=== PATIENT | female | born 1990 | race Two or more races ===

== ENCOUNTER 2018-05-22 20:57 | Inpatient (IN) | payer OTHER ==
[2018-05-22 22:21] LABS: ADD UMIC YES; UR ASCORBIC ACID NEGATIVE (NEGATIVE); UR BACTERIA FEW /HPF (NONE SEEN); UR BILIRUBIN (Dip) NEGATIVE (NEGATIVE); UR BLOOD (Dip) NEGATIVE (NEGATIVE); UR CLARITY SLIGHTLY CLOUDY (CLEAR); UR COLOR YELLOW (YELLOW); UR GLUCOSE (Dip) NEGATIVE (NEGATIVE); UR KETONES (Dip) NEGATIVE (NEGATIVE); UR LEUKOCYTE ESTERASE (Dip) TRACE Leu/ul (NEGATIVE); UR MUCUS MANY /HPF (NONE SEEN); UR NITRITE (Dip) NEGATIVE (NEGATIVE); UR RBC 2 /HPF (0-5); UR SPECIFIC GRAVITY (Dip) 1.035 (1.003-1.030); UR SQUAMOUS EPITHELIAL CELL FEW /HPF (FEW); UR TOTAL PROTEIN (Dip) 2+ mg/dl (NEGATIVE); UR UROBILINOGEN (Dip) 1+ mg/dL (NEGATIVE); UR WBC 5 /HPF (0-5)
[2018-05-22 22:30] LABS: ABNORMAL IP MESSAGE 1; HEMATOCRIT 34.4 % (37.0-47.0); HEMOGLOBIN 12.2 g/dl (12.0-16.0); MEAN CORPUSCULAR HEMOGLOBIN 32.5 pg (29.0-33.0); MEAN CORPUSCULAR HGB CONC 35.5 g/dl (32.0-37.0); MEAN CORPUSCULAR VOLUME 91.7 fl (82.0-101.0); MEAN PLATELET VOLUME 14.2 fl (7.4-10.4); NUCLEATED RED BLOOD CELLS% 0.3 /100WBC (0.0-0.0); PLATELET COUNT 97 10^3/UL (140-415); RED BLOOD COUNT 3.75 10^6/ul (4.20-5.40); RED CELL DISTRIBUTION WIDTH 12.5 % (11.5-14.5)
[2018-05-22 22:30] LABS: WHITE BLOOD COUNT 7.8 10^3/ul (4.8-10.8)
[2018-05-22 22:40] LABS: POSITIVE DIFF @See below
[2018-05-22 22:41] LABS: ADD MAN DIFF? YES
[2018-05-22 22:49] LABS: ALANINE AMINOTRANSFERASE 18 IU/L (13-69); ALBUMIN 2.7 g/dl (3.3-4.9); ALBUMIN/GLOBULIN RATIO 0.96; ALKALINE PHOSPHATASE 127 IU/L (42-121); ANION GAP 9 (5-13); ASPARTATE AMINO TRANSFERASE 19 IU/L (15-46); BILIRUBIN,INDIRECT 0.1 mg/dl (0-1.1); BILIRUBIN,TOTAL 0.1 mg/dl (0.2-1.3); BLOOD UREA NITROGEN 14 mg/dl (7-20); CALCIUM 8.8 mg/dl (8.4-10.2); CARBON DIOXIDE 21 mmol/L (21-31); CHLORIDE 107 mmol/L (97-110); CREATININE 0.73 mg/dl (0.44-1.00); Estimated GFR > 60 mL/min (>60); GLUCOSE 84 mg/dl (70-220); SODIUM 137 mmol/L (135-144); TOTAL PROTEIN 5.5 g/dl (6.1-8.1); URIC ACID 7.5 mg/dl (3.1-7.9)
[2018-05-22 22:50] LABS: INR 0.87; PARTIAL THROMBOPLASTIN TIME 25.8 Sec (23.0-35.0); PROTIME 11.9 Sec (11.9-14.9); PT RATIO 0.9
[2018-05-22 23:13] LABS: BAND NEUTROPHILS #M 0.1 10^3/ul (0.0-0.6); BAND NEUTROPHILS % (M) 2 % (0-4); ERYTHROBLAST% (NRBC) (M) 1 % (0-0); LYMPHOCYTES % (M) 13 % (15-51); MONOCYTE #M 0.1 10^3/ul (0.3-0.9); MONOCYTES % (M) 2 % (0-11); PLATELET ESTIMATE DECREASED; POLYCHROMASIA 2+ (0-0); SEG NEUT #M 6.5 10^3/ul (1.6-7.5); SEGMENTED NEUTROPHILS (M) % 83 % (39-77); SMUDGE%M 7 % (0-0)
[2018-05-23] MEDS ORDERED: ACETAMINOPHEN 325 MG TAB PO (00:30)
[2018-05-23] MEDS: AL HYDROX/MG HYDROX/SIMETH 30 ML CUP PO (00:59)
[2018-05-23] MEDS: NACL 0.9% 3 ML SYG IV (01:15)
[2018-05-23] MEDS: BETAMET NA PHOS/AC(6 MG/ML) 5ML INJ IM (01:47)
[2018-05-23] MEDS: FERROUS SULFATE (EC) 325 MG TAB PO (09:16)
[2018-05-23] MEDS: PRENATAL VITAMIN PO (09:16)
[2018-05-23] MEDS: ASPIRIN 81 MG TAB PO (09:37)
[2018-05-23 16:15] LABS: RAPID PLASMA REAGIN NONREACTIVE (NR)
[2018-05-23 22:17] LABS: COLLECTION PERIOD 24 hrs
[2018-05-23 22:18] LABS: COLLECTION PERIOD 24 hrs; SCRET 0.73 mg/dl (0.44-1.00); VOLUME 1000 ml/24hrs
[2018-05-23 22:19] LABS: CREATININE CLEARANCE 141.3 mls/min (84.0-162.0); CREATININE,URINE RANDOM 148.55 mg/dl (20-320); VOLUME 1000 mls
[2018-05-24] MEDS: BETAMET NA PHOS/AC(6 MG/ML) 5ML INJ IM (02:35)
[2018-05-24] MEDS ORDERED: PROPOFOL 200 MG INJ (07:00)
[2018-05-24] MEDS: ASPIRIN 81 MG TAB PO (08:57)
[2018-05-24] MEDS: FERROUS SULFATE (EC) 325 MG TAB PO (08:57)
[2018-05-24] MEDS: PRENATAL VITAMIN PO (08:57)
[2018-05-24 10:36] LABS: ADD MAN DIFF? NO
[2018-05-24 10:41] LABS: ABNORMAL IP MESSAGE 1; HEMATOCRIT 36.1 % (37.0-47.0); HEMOGLOBIN 12.6 g/dl (12.0-16.0); LYMPHOCYTES # 0.3 10^3/ul (0.8-2.9); LYMPHOCYTES % 4.5 % (15.0-51.0); MEAN CORPUSCULAR HEMOGLOBIN 32.3 pg (29.0-33.0); MEAN CORPUSCULAR HGB CONC 34.9 g/dl (32.0-37.0); MEAN CORPUSCULAR VOLUME 92.6 fl (82.0-101.0); MEAN PLATELET VOLUME 14.4 fl (7.4-10.4); MONOCYTE # 0.1 10^3/ul (0.3-0.9); MONOCYTES % 1.6 % (0.0-11.0); NEUTROPHIL # 6.9 10^3/ul (1.6-7.5); NEUTROPHILS % 93.1 % (39.0-77.0); NUCLEATED RED BLOOD CELLS% 0.4 /100WBC (0.0-0.0); PLATELET COUNT 100 10^3/UL (140-415); RED CELL DISTRIBUTION WIDTH 12.6 % (11.5-14.5)
[2018-05-24 10:41] LABS: WHITE BLOOD COUNT 7.4 10^3/ul (4.8-10.8)
[2018-05-24 10:51] LABS: POSITIVE DIFF @See below
[2018-05-24 11:02] LABS: ALANINE AMINOTRANSFERASE 15 IU/L (13-69); ALBUMIN 3.3 g/dl (3.3-4.9); ALBUMIN/GLOBULIN RATIO 1.13; ALKALINE PHOSPHATASE 127 IU/L (42-121); ANION GAP 9 (5-13); ASPARTATE AMINO TRANSFERASE 22 IU/L (15-46); BILIRUBIN,INDIRECT 0.2 mg/dl (0-1.1); BILIRUBIN,TOTAL 0.2 mg/dl (0.2-1.3); BLOOD UREA NITROGEN 9 mg/dl (7-20); CARBON DIOXIDE 20 mmol/L (21-31); CHLORIDE 107 mmol/L (97-110); CREATININE 0.54 mg/dl (0.44-1.00); Estimated GFR > 60 mL/min (>60); GLUCOSE 151 mg/dl (70-220); POTASSIUM 4.6 mmol/L (3.5-5.1); SODIUM 136 mmol/L (135-144); TOTAL PROTEIN 6.2 g/dl (6.1-8.1)
[2018-05-24] MEDS ORDERED: METHYLERGONOVINE 0.2 MG INJ IM ×2 (11:30→20:00)
[2018-05-24] MEDS ORDERED: MISOPROSTOL 200 MCG TAB PR ×2 (11:30→20:00)
[2018-05-24] MEDS ORDERED: CARBOPROST 250 MCG INJ IM ×2 (11:30→20:00)
[2018-05-24] MEDS ORDERED: OXYTOCIN 30 UNITS/LR 500 ML IV ×3 (11:30→20:00)
[2018-05-24] MEDS: FAMOTIDINE 20 MG INJ IV ×2 (11:54→16:03)
[2018-05-24] MEDS: LACTATED RINGER'S 1,000 ML IV ×2 (11:55→14:57)
[2018-05-24] MEDS: MAGNESIUM SULFATE 4 GM/100 ML 100 ML IVPB (11:59)
[2018-05-24] MEDS: MAGNESIUM SULFATE 20 GM/500 ML 500 ML IV (12:01)
[2018-05-24 12:33] LABS: HEPATITIS B SURFACE ANTIGEN NEGATIVE (NEGATIVE)
[2018-05-24 14:29] LABS: INR 0.87; PROTIME 11.9 Sec (11.9-14.9); PT RATIO 0.9
[2018-05-24 14:30] LABS: PARTIAL THROMBOPLASTIN TIME 25.6 Sec (23.0-35.0)
[2018-05-24 15:25] LABS: RAPID PLASMA REAGIN NONREACTIVE (NR)
[2018-05-24 15:40] LABS: WHITE BLOOD COUNT 8.5 10^3/ul (4.8-10.8)
[2018-05-24 15:40] LABS: ABNORMAL IP MESSAGE 1; HEMATOCRIT 37.1 % (37.0-47.0); HEMOGLOBIN 12.9 g/dl (12.0-16.0); MEAN CORPUSCULAR HEMOGLOBIN 32.4 pg (29.0-33.0); MEAN CORPUSCULAR HGB CONC 34.8 g/dl (32.0-37.0); MEAN CORPUSCULAR VOLUME 93.2 fl (82.0-101.0); MEAN PLATELET VOLUME 14.3 fl (7.4-10.4); NUCLEATED RED BLOOD CELLS% 0.4 /100WBC (0.0-0.0); PLATELET COUNT 114 10^3/UL (140-415); RED BLOOD COUNT 3.98 10^6/ul (4.20-5.40); RED CELL DISTRIBUTION WIDTH 12.7 % (11.5-14.5)
[2018-05-24 15:53] LABS: ADD MAN DIFF? YES; POSITIVE DIFF @See below
[2018-05-24] MEDS ORDERED: DIPHENHYDRAMINE 50 MG INJ IV (16:00)
[2018-05-24] MEDS: ONDANSETRON 4 MG INJ IV (16:00)
[2018-05-24] MEDS ORDERED: NALOXONE (0.4 MG/ML) INJ IV (16:00)
[2018-05-24] MEDS ORDERED: KETOROLAC 30 MG INJ IV (16:00)
[2018-05-24] MEDS ORDERED: hydrALAzine 20 MG INJ IV (16:00)
[2018-05-24] MEDS ORDERED: LABETALOL HCL 20MG INJ IV (16:00)
[2018-05-24] MEDS ORDERED: ONDANSETRON 4 MG INJ IV (16:00)
[2018-05-24] MEDS ORDERED: FENTAnyl 50 MCG/ML VIAL IV ×2 (16:00)
[2018-05-24] MEDS ORDERED: HYDROmorphONE 1 MG/5 ML IV SYRINGE IV ×3 (16:00)
[2018-05-24] MEDS: METOCLOPRAMIDE 10 MG INJ IV (16:01)
[2018-05-24] MEDS ORDERED: morphine SULFATE/PF (10 MG/10 ML) INJ (16:35)
[2018-05-24] MEDS ORDERED: BUPIVACAINE 0.75%/DEXT (SPINAL) 2 ML INJ (16:36)
[2018-05-24] MEDS ORDERED: OXYTOCIN 10 UNIT INJ (16:37)
[2018-05-24 16:58] LABS: BAND NEUTROPHILS #M 0.1 10^3/ul (0.0-0.6); BAND NEUTROPHILS % (M) 2 % (0-4); GIANT THROMBO% (M) 4 % (0-0); LYMPHOCYTES #M 0.1 10^3/ul (0.8-2.9); LYMPHOCYTES % (M) 2 % (15-51); PLATELET ESTIMATE DECREASED; PROMYELOCYTES #M 0.1 10^3/ul (0-0); PROMYELOCYTES % (M) 2 % (0-0); SEGMENTED NEUTROPHILS (M) % 94 % (39-77); SMUDGE%M 3 % (0-0)
[2018-05-24] MEDS: CEFAZOLIN 2 GM/50 ML (PMX) 50 ML IV (17:39)
[2018-05-24] MEDS: OXYTOCIN 30 UNITS/LR 500 ML IV ×3 (18:54→23:46)
[2018-05-24] MEDS ORDERED: CEFAZOLIN 1 GM/50 ML (PMX) 50 ML IVPB (20:00)
[2018-05-24] MEDS ORDERED: HYDROCODONE/APAP (5/325) TAB PO (20:00)
[2018-05-24] MEDS ORDERED: OXYCODONE/ACETAMINOPHEN (5/325) TAB PO ×2 (20:00)
[2018-05-24] MEDS: SENNA/DOCUSATE NA (8.6MG/50MG) TAB PO (21:00)
[2018-05-24] MEDS: CEFAZOLIN 1 GM/50 ML (PMX) 50 ML IVPB (23:45)
[2018-05-25] MEDS: OXYTOCIN 30 UNITS/LR 500 ML IV ×6 (04:24→23:46)
[2018-05-25 08:45] LABS: ADD MAN DIFF? NO
[2018-05-25 08:50] LABS: WHITE BLOOD COUNT 7.6 10^3/ul (4.8-10.8)
[2018-05-25 08:50] LABS: ABNORMAL IP MESSAGE 1; BASOPHILS % 0.1 % (0.0-2.0); HEMATOCRIT 34.3 % (37.0-47.0); HEMOGLOBIN 11.9 g/dl (12.0-16.0); LYMPHOCYTES # 0.5 10^3/ul (0.8-2.9); LYMPHOCYTES % 6.9 % (15.0-51.0); MEAN CORPUSCULAR HEMOGLOBIN 32.4 pg (29.0-33.0); MEAN CORPUSCULAR HGB CONC 34.7 g/dl (32.0-37.0); MEAN CORPUSCULAR VOLUME 93.5 fl (82.0-101.0); MONOCYTE # 0.6 10^3/ul (0.3-0.9); MONOCYTES % 7.3 % (0.0-11.0); NEUTROPHIL # 6.4 10^3/ul (1.6-7.5); NEUTROPHILS % 85.2 % (39.0-77.0); NUCLEATED RED BLOOD CELLS% 0.3 /100WBC (0.0-0.0); PLATELET COUNT 96 10^3/UL (140-415); RED BLOOD COUNT 3.67 10^6/ul (4.20-5.40); RED CELL DISTRIBUTION WIDTH 12.6 % (11.5-14.5)
[2018-05-25] MEDS ORDERED: ZOLPIDEM 5 MG TAB PO (09:00)
[2018-05-25] MEDS ORDERED: NALOXONE (0.4 MG/ML) INJ IV (09:00)
[2018-05-25] MEDS ORDERED: HYDROmorphONE 0.5 MG/0.5 ML SYG IV (09:00)
[2018-05-25] MEDS ORDERED: DIPHENHYDRAMINE 50 MG INJ IV (09:00)
[2018-05-25] MEDS ORDERED: ONDANSETRON 4 MG INJ IV (09:00)
[2018-05-25 09:04] LABS: POSITIVE DIFF @See below
[2018-05-25] MEDS: SENNA/DOCUSATE NA (8.6MG/50MG) TAB PO (09:06)
[2018-05-25] MEDS: KETOROLAC 30 MG INJ IV (13:49)
[2018-05-25] MEDS: HYDROmorphONE 0.5 MG/0.5 ML SYG IV (15:28)
[2018-05-26] MEDS: SENNA/DOCUSATE NA (8.6MG/50MG) TAB PO ×3 (00:08→21:56)
[2018-05-26] MEDS: OXYTOCIN 30 UNITS/LR 500 ML IV ×6 (03:46→23:46)
[2018-05-26] MEDS: HYDROCODONE/APAP (5/325) TAB PO (04:49)
[2018-05-26] MEDS: IBUPROFEN 600 MG TAB PO ×2 (11:34→18:00)
[2018-05-26] MEDS: NA PHOSPHATE/BIPHOS 133 ML ENEMA PR (19:00)
[2018-05-27] MEDS: IBUPROFEN 600 MG TAB PO ×2 (00:28→05:49)
[2018-05-27] MEDS: OXYTOCIN 30 UNITS/LR 500 ML IV (03:46)
[2018-05-27] MEDS: SENNA/DOCUSATE NA (8.6MG/50MG) TAB PO (08:55)
[2018-05-27] MEDS: DIPHTH/TET/ACEL PERTUSS (ADULT) 0.5 ML VIAL IM* (08:57)
[2018-05-27] MEDS: LANOLIN 7 GM TUBE TOP (09:09)
== END 2018-05-27 12:40 | disposition home or self-care (01) | DRG 787 ==
LOC: OBT 20:57 → L-D 05-24 13:00 → PP1 05-23 14:46 → L-D 05-24 16:37 → PP1 05-24 20:57
PROC: 10D00Z1 Extraction of Products of Conception, Low, Open Approach (ICD-10-PCS; principal; 2018-05-24 17:15)
DX: O11.4 Pre-existing hypertension with pre-eclampsia, complicating childbirth (principal); O99.12 Other diseases of the blood and blood-forming organs and certain disorders involving the immune mechanism complicating childbirth; O10.02 Pre-existing essential hypertension complicating childbirth; D69.6 Thrombocytopenia, unspecified; O34.219 Maternal care for unspecified type scar from previous cesarean delivery; Z3A.28 28 weeks gestation of pregnancy; Z37.0 Single live birth; Z87.59 Personal history of other complications of pregnancy, childbirth and the puerperium; Z23 Encounter for immunization
CPT/HCPCS: 36415; 76815; 76818; 80053; 81001; 82575; 84156; 84560; 85025; 85384; 85610; 85730; 86592; 86850; 86900; 86901; 87340; 88307; 90715; 99464